=== PATIENT | female | born 1950 | race Caucasian/White ===

== ENCOUNTER 2018-10-15 12:52 | Outpatient (CLI) | payer OTHER, SELFPAY ==
[2018-10-15] VITALS (16 sets, daily range): BP systolic 129–213; BP diastolic 60–111; PULSE 68–93; RESP 16–20; TEMP 36.9; O2SAT 94–100
--- NOTE | 2018-10-15 13:00 | DI.RAD.S_ITS ---
PROCEDURE: PAIN L INTERLAMINAR/CAUDAL INJ INDICATIONS: SPINAL STENOSIS FINDINGS: Fluoroscopic spot filming was performed to verify placement of spinal needles. Appropriate location(s) of the needle tip(s) was confirmed by injection of iodinated contrast. IMPRESSION: Fluoroscopy for pain management. Dictated by: Mervat Campbell M.D. on 10/15/2018 at 14:15 Approved by: Mervat Campbell M.D. on 10/15/2018 at 14:16
--- NOTE | 2018-10-15 13:36 | P.PCN_ITS ---
Procedures Date/Time Date of procedure: 10/15/18 Time of procedure: 13:34 General Procedure description: POST OP DIAGNOSIS 1. HNP WITH RADICULAR FEATURES, 2. MULTILEVEL CENTRAL STENOSIS, PROCEDURES 1. FLUORSCOPICALLY GUIDED CONTRAST CONTROLLED INTERLAMINAR EPIDURAL STEROID INJECTION - T12/L1 PHYSICIAN: Aleksey Crane DO INDICATIONS is referred by for treatment of Bilateral Foraminal Stenosis L>R LE symptoms. FINDINGS Multilevel Central Spinal Stenosis with Nerve Root Compression DESCRIPTION OF PROCEDURE Fluoroscopically guided, contrast-controlled T12/L1 translaminar epidural steroid injection. Following denial of allergy and review of potential side effects and complications, including, but not necessarily limited to, infection, allergic reaction, local tissue breakdown, temporary as well as permanent nerve injury, paralysis, stroke and possible , the patient indicated that the patient understood and agreed to proceed. An informed consent document was signed by the patient, witnessed by a nurse, and placed in the patient's chart. Additionally, other treatment options including modalities, medications, and physical therapy were reviewed with the patient. After review of previous anaesthesic history and IV conscious sedation the patient was deemed safe to proceed with todays procedure with IV conscious sedation as ASA class II designation. Safety time-out was performed to confirm patient ID, procedure to be performed and site of procedure. IV sedation was accomplished with a combination of 3mg was administered by the RN after DO order , titrated to patient comfort during the course of the procedure while the patient remained responsive to all verbal commands In the prone position, following sterile prep and drape of the lumbar region, the T12/L1 translaminar space was identified fluoroscopically. The skin was anesthetized via a 25-gauge, 1.5-inch needle with 1% lidocaine solution. At this point, a 22-gauge short bevel spinal needle was atraumatically introduced and advanced under fluoroscopic guidance into the region of the T12/L1 translaminar space. Depth was confirmed on lateral view. Radiological data, including multiple fluoroscopic views of the lumbar spine, reveal a spinal needle at the T12/L1 translaminar space. Lateral views then show placement of the needle in the epidural space. Subsequent views show contrast material flowing superiorly and inferiorly in the epidural space. No vascular or intrathecal uptake is observed. At this point, using loss of resistance technique with saline and air, the epidural space was entered. This was confirmed following negative aspiration with injection of approximately 1.5 cc of Isovue 200, showing excellent epidural flow without vascular or intrathecal uptake. At this point, 1 cc of 1 % lidocaine solution combined with 3 cc or 20 mg of dexamethasone and 80mg Depo medrol was injected without incident. The patient tolerated the procedure well without signs or symptoms of complications prior to transfer to the recovery area continued monitoring without incident. The patient was then transferred to the recovery area where they were observed for an appropriate period of time after the injection. The patient reported a VAS score of 6 prior to the procedure and a post- procedure VAS of 0. Total Fluoroscopy Time: 11.8 seconds Total Conscious Sedation Time: 24min POST OP INSTRUCTIONS The patient was provided a Pain Log to continue to record their response to the target-specific procedure prior to follow-up visit with their referring physician. Additionally, specific post-injection care instructions and a contact number to our office were provided if concerns arise regarding possible complications associated with the procedure are suspected. Aleksey Crane, Complications: none
[2018-10-15] MEDS: MIDAZOLAM 5 MG/5 ML VIAL IV (13:44)
[2018-10-15] MEDS: BUPIVACAINE 0.25% (PF) VIAL 2 ML INJ (13:49)
[2018-10-15] MEDS: IOPAMIDOL 15 ML VIAL 3 ML INJ ×2 (13:49→15:56)
[2018-10-15] MEDS: DEXAMETHASONE 10 MG/ML VIAL 20 MG INJ (13:49)
[2018-10-15] MEDS: methylPREDNISolone acetate 80 MG/ML VIAL INJ (13:50)
--- NOTE | 2018-10-15 13:55 | PC.NURSE ---
assisting pt off table and transporting to post proc area in stable condition
--- NOTE | 2018-10-15 14:38 | PC.NURSE ---
pt returned from procedure awake and alert, able to move from w/c to chair with 2 person standby assist. reports her legs are numb. Resumed monitoring from Maritza CARLIN.
--- NOTE | 2018-10-15 14:41 | PC.NURSE ---
Having patient wait related her legs are still numb. Will recheck in a few minutes.
--- NOTE | 2018-10-15 14:49 | PC.NURSE ---
Double checked pt and she is still reporting her each leg is numb and her buttocks are still numb.
--- NOTE | 2018-10-15 15:34 | DI.RAD.S_ITS ---
PROCEDURE: PAIN INJECT BLOOD PATCH COMPARISON: None. INDICATIONS: spinal headache FINDINGS: Four intraoperative fluoroscopy images demonstrate needle placement in the lumbar spine. IMPRESSION: Fluoroscopy for pain management. Dictated by: Mervat Campbell M.D. on 10/15/2018 at 17:54 Approved by: Mervat Campbell M.D. on 10/15/2018 at 17:55
--- NOTE | 2018-10-15 15:44 | PM.PROC.1 ---
Procedures Date/Time Date of procedure: 10/15/18 Time of procedure: 15:44 General Procedure description: PROVIDER: Aleksey Crane DO Operative Note PREOP DIAGNOSIS 1. SPINAL HEADACHE POST OP DIAGNOSIS 1. SPINAL HEADACHE PROCEDURES 1. FLUORSCOPICALLY GUIDED CONTRAST CONTROLLED EPIDURAL BLOOD PATCH PHYSICIAN: Aleksey Crane DO INDICATIONS Sudha is referred by Dr. Burns for treatment of Spinal Headache s/p spinal procedure for LE pain. FINDINGS Spinal Headache Multilevel Central Spinal Stenosis with Nerve Root Compression DESCRIPTION OF PROCEDURE Fluoroscopically guided, contrast-controlled LEpidural Blood Patch Following denial of allergy and review of potential side effects and complications, including, but not necessarily limited to, infection, allergic reaction, local tissue breakdown, temporary as well as permanent nerve injury, paralysis, stroke and possible , the patient indicated that the patient understood and agreed to proceed. An informed consent document was signed by the patient, witnessed by a nurse, and placed in the patient's chart. Additionally, other treatment options including modalities, medications, and physical therapy were reviewed with the patient. After review of previous anaesthesic history and IV conscious sedation the patient was deemed safe to proceed with todays procedure with IV conscious sedation as ASA class II designation. Safety time-out was performed to confirm patient ID, procedure to be performed and site of procedure. IV sedation was accomplished with 50mcg of Fentanyl administered by the RN after DO order, titrated to patient comfort during the course of the procedure while the patient remained responsive to all verbal commands. In the prone position, following sterile prep and drape of the lumbar region, the L2/3 translaminar space was identified fluoroscopically. The skin was anesthetized via a 25-gauge, 1.5-inch needle with 1% lidocaine solution. At this point, a 22-gauge short bevel spinal needle was atraumatically introduced and advanced under fluoroscopic guidance into the region of the L2/3 translaminar space. Depth was confirmed on lateral view. Radiological data, including multiple fluoroscopic views of the lumbar spine, reveal a spinal needle at the L2/3 translaminar space. Lateral views then show placement of the needle in the epidural space. Subsequent views show contrast material flowing superiorly and inferiorly in the epidural space. No vascular or intrathecal uptake is observed. At this point, using loss of resistance technique with saline and air, the epidural space was entered. This was confirmed following negative aspiration with injection of approximately 0.5cc of Isovue 200, showing excellent epidural flow without vascular or intrathecal uptake. At this point, 20cc of the patients blood was obtained from the IV site. This was then slowly injected into the epidural space while monitoring the patients neurological state. The patent tolerated the procedure without signs of symptoms of complications prior to transfer to the recovery area on a bed lying supine flat for further monitoring. The patient was then transferred to the recovery area where they were observed for an appropriate period of time after the injection. The patient reported a VAS score of 8 prior to the procedure and a post-procedure VAS of 1. Total Fluoroscopy Time: 11.8 seconds Total Conscious Sedation Time: 24min POST OP INSTRUCTIONS The patient was provided a Pain Log to continue to record their response to the target-specific procedure prior to follow-up visit with their referring physician. Additionally, specific post-injection care instructions and a contact number to our office were provided if concerns arise regarding possible complications associated with the procedure are suspected. Aleksey Crane, Complications: none
[2018-10-15] MEDS: fentaNYL 100 MCG/2 ML INJ IV (15:54)
--- NOTE | 2018-10-15 16:04 | PC.NURSE ---
2nd proc sedation done for blood patch rt acute headache after scheduled procedure. pt not being assisted off table and transporting to post proc area in stable condition
--- NOTE | 2018-10-15 16:55 | PC.NURSE ---
pt returned from Blood patch at 1611, pt awake and alert. Pt stable. Resumed monitoring from Maritza CARLIN.
--- NOTE | 2018-10-15 16:58 | PC.NURSE ---
Headache pain 0/10, sat pt up and gave her some water and cookies. Pt tolerating position change.
--- NOTE | 2018-10-16 16:27 | PC.NURSE ---
Follow up injection call made and pt reports I can't believe I don't hurt Even though she didn't sleep well last night she denied having any headache pain, She did take her gabapentin and tylenol last night and then put some heat on her back and the pain went away.
== END 2018-10-15 16:53 ==
LOC: RAD 12:57
PROVIDERS: PCP Family Medicine; Visit Provider Physical Medicine & Rehabilitation
DX: G97.1 Other reaction to spinal and lumbar puncture (principal); M48.061 Spinal stenosis, lumbar region without neurogenic claudication; M54.16 Radiculopathy, lumbar region; M96.1 Postlaminectomy syndrome, not elsewhere classified; S23.171A Dislocation of T12/L1 thoracic vertebra, initial encounter
CPT/HCPCS: 62273; 62323; 77003; 99152; J1040; J1100; J2250; J3010

== ENCOUNTER 2018-11-26 10:04 | Outpatient (CLI) | payer OTHER, SELFPAY ==
[2018-11-26] VITALS (8 sets, daily range): BP systolic 124–171; BP diastolic 66–80; PULSE 62–67; RESP 16–18; TEMP 36.2; O2SAT 95–99
--- NOTE | 2018-11-26 10:05 | DI.RAD.S_ITS ---
PROCEDURE: PAIN L INTERLAMINAR/CAUDAL INJ INDICATIONS: SPINAL STENOSIS FINDINGS: Fluoroscopic spot filming was performed to verify placement of spinal needles at the L5-S1 level(s), as labeled on the films. Appropriate location(s) of the needle tip(s) was confirmed by injection of iodinated contrast. IMPRESSION: Fluoroscopy for pain management. Dictated by: Mervat Campbell M.D. on 11/26/2018 at 12:13 Approved by: Mervat Campbell M.D. on 11/26/2018 at 12:13
[2018-11-26] MEDS: MIDAZOLAM 5 MG/5 ML VIAL IV (11:25)
--- NOTE | 2018-11-26 11:34 | PC.NURSE ---
ASSISTING PT OFF TABLE AND TRANSPORTING TO POST PROC AREA IN STABLE CONDITION
--- NOTE | 2018-11-26 11:42 | P.PCN_ITS ---
Procedures Date/Time Date of procedure: 11/26/18 Time of procedure: 11:41 General Procedure description: PROVIDER: Aleksey Crane DO Operative Note PREOP DIAGNOSIS 1. HNP WITH RADICULAR FEATURES, 2. MULTILEVEL CENTRAL STENOSIS, POST OP DIAGNOSIS 1. HNP WITH RADICULAR FEATURES, 2. MULTILEVEL CENTRAL STENOSIS, PROCEDURES 1. FLUORSCOPICALLY GUIDED CONTRAST CONTROLLED INTERLAMINAR EPIDURAL STEROID INJECTION - L5/S1 PHYSICIAN: Aleksey Crane DO INDICATIONS Sudha is referred by Dr. Burns for treatment of Bilateral Foraminal Stenosis L>R LE symptoms. FINDINGS Multilevel Central Spinal Stenosis with Nerve Root Compression DESCRIPTION OF PROCEDURE Fluoroscopically guided, contrast-controlled L5/S1 translaminar epidural steroid injection. Following denial of allergy and review of potential side effects and complications, including, but not necessarily limited to, infection, allergic reaction, local tissue breakdown, temporary as well as permanent nerve injury, paralysis, stroke and possible , the patient indicated that the patient understood and agreed to proceed. An informed consent document was signed by the patient, witnessed by a nurse, and placed in the patient's chart. Additionally, other treatment options including modalities, medications, and physical therapy were reviewed with the patient. After review of previous anaesthesic history and IV conscious sedation the patient was deemed safe to proceed with todays procedure with IV conscious sedation as ASA class II designation. Safety time-out was performed to confirm patient ID, procedure to be performed and site of procedure. IV sedation was accomplished with a combination of 3mg of Versed administered by the RN after DO order, titrated to patient comfort during the course of the procedure while the patient remained responsive to all verbal commands. In the prone position, following sterile prep and drape of the lumbar region, the L5/S1 translaminar space was identified fluoroscopically. The skin was anesthetized via a 25-gauge, 1.5-inch needle with 1% lidocaine solution. At this point, a 22-gauge short bevel spinal needle was atraumatically introduced and advanced under fluoroscopic guidance into the region of the L5/S1 t ranslaminar space. Depth was confirmed on lateral view. Radiological data, including multiple fluoroscopic views of the lumbar spine, reveal a spinal needle at the L5/S1 translaminar space. Lateral views then show placement of the needle in the epidural space. Subsequent views show contrast material flowing superiorly and inferiorly in the epidural space. No vascular or intrathecal uptake is observed. At this point, using loss of resistance technique with saline and air, the epidural space was entered. This was confirmed following negative aspiration with injection of approximately 1.5 cc of Isovue 200, showing excellent epidural flow without vascular or intrathecal uptake. At this point, 1 cc of 1% lidocaine solution combined with 2cc or 20mg of dexamethasone was injected with out incident. The patent tolerated the procedure without signs of symptoms of complications prior to transfer to the recovery area for further monitoring. The patient was then transferred to the recovery area where they were observed for an appropriate period of time after the injection. The patient reported a VAS score of 6 prior to the procedure and a post-procedure VAS of 0. Total Fluoroscopy Time: 11.8 seconds Total Conscious Sedation Time: 24min POST OP INSTRUCTIONS The patient was provided a Pain Log to continue to record their response to the target-specific procedure prior to follow-up visit with their referring physician. Additionally, specific post-injection care instructions and a contact number to our office were provided if concerns arise regarding possible complications associated with the procedure are suspected. Aleksey Crane DO Complications: none
--- NOTE | 2018-11-26 12:07 | PC.NURSE ---
pt returned from procedure at 1140 via wheelchair, a little drowsy but easily awakens, able to move from w/c to chair with standby assist. Resumed monitoring from Maritza CARLIN.
--- NOTE | 2018-11-27 13:31 | PC.NURSE ---
Follow up call post procedure translaminar epidural steroid injection and left message as pt did not answer the phone.
== END 2018-11-26 12:36 ==
LOC: RAD 10:04
PROVIDERS: PCP Family Medicine; Visit Provider Physical Medicine & Rehabilitation
DX: M51.17 Intervertebral disc disorders with radiculopathy, lumbosacral region (principal); M51.16 Intervertebral disc disorders with radiculopathy, lumbar region; M48.061 Spinal stenosis, lumbar region without neurogenic claudication; M47.27 Other spondylosis with radiculopathy, lumbosacral region; M43.17 Spondylolisthesis, lumbosacral region; M96.1 Postlaminectomy syndrome, not elsewhere classified; Z95.5 Presence of coronary angioplasty implant and graft
CPT/HCPCS: 62323; 99152; J1100; J2250

== ENCOUNTER 2018-11-26 20:13 | Emergency (ER) | payer OTHER, SELFPAY ==
[2018-11-26 20:22] VITALS: BP 205/86; PULSE 94; RESP 22; TEMP 36.4; O2SAT 96; BMI 23.7
--- NOTE | 2018-11-26 20:28 | ED.HA ---
HPI - Headache <ZOYA Bird - Last Filed: 11/26/18 21:57> General Chief Complaint: Headache Stated Complaint: HEADACHE AFTER PROCEDURE Time Seen by Provider: 11/26/18 20:27 Source: patient Mode of arrival: ambulatory Limitations: no limitations History of Present Illness HPI Narrative: 68-year-old female history of chronic lower back pain and is a nonsmoker here for complaint of headache. She was seen by Dr. Crane today at the pain management clinic where a lumbar epidural steroid injection was completed today. This was to the lower lumbar area. She is afraid that she has a spinal headache. She has had this in the past after these procedures. She denies any nausea vomiting. No fevers and no chills. No trauma to the head. Positive p.o. and take. She reports that last time she had to have a blood patch to reduce her headache. She denies any stressors relievers of her symptoms. she is ambulatory into the emergency room. No neuro deficits Related Data Home Medications Medication Instructions Recorded Confirmed aspirin 325 mg tablet 325 mg PO DAILY 08/29/18 11/14/18 benzonatate 200 mg capsule 200 mg PO TID PRN 08/29/18 11/14/18 calcium carbonate 500 mg calcium 500 mg PO Q4-6H PRN cap 08/29/18 11/14/18 (1,250 mg) capsule carvedilol 6.25 mg tablet See Rx Instructions PO BID 08/29/18 11/14/18 duloxetine 60 mg capsule,delayed 60 mg PO DAILY 08/29/18 11/14/18 release ferrous fumarate 325 mg (106 mg PO DAILY tab 08/29/18 11/14/18 iron) tablet glipizide 10 mg tablet 10 mg PO BID 08/29/18 11/14/18 metformin 1,000 mg tablet 1,000 mg PO BID 08/29/18 11/14/18 paroxetine 10 mg tablet 10 mg PO DAILY 08/29/18 11/14/18 ropinirole 3 mg tablet 3 mg PO BEDTIME 08/29/18 11/14/18 gabapentin 300 mg capsule 600 mg PO TID cap 10/23/18 11/14/18 Previous Rx's Medication Instructions Recorded tramadol 50 mg tablet 50 mg PO TID PRN #60 tab 10/23/18 celecoxib 200 mg capsule 200 mg PO DAILY #30 cap 11/14/18 Allergies Allergy/AdvReac Type Severity Reaction Status Date / Time ciprofloxacin Allergy Intermediate hives Verified 11/26/18 10:59 levofloxacin Allergy Intermediate nausea - Verified 11/26/18 10:59 vomitting lisinopril AdvReac Intermediate low BP, Verified 11/26/18 10:59 dizziness ketorolac AdvReac Mild itching Verified 11/26/18 10:59 zolpidem AdvReac Mild sleep Verified 11/26/18 10:59 walking daptomycin AdvReac Unknown unkknown Verified 11/26/18 10:59 Review of Systems <ZOYA Bird - Last Filed: 11/26/18 21:57> Constitutional Denies chills, Denies fatigue, Denies fever(s), Denies lethargy and Denies weakness Eyes Denies change in vision, Denies eye discharge, Denies irritation and Denies loss of vision ENT Ears, Nose, Mouth, and Throat: Denies change in voice, Denies neck pain, Denies sore throat and Denies throat swelling Respiratory Denies wheezing Genitourinary Denies hematuria, Denies flank pain, Denies urinary incontinence and Denies urinary urgency Musculoskeletal Denies neck pain Neurologic Denies confusion, Denies loss of vision and Denies weakness Comments: Headache Psychiatric Denies anxiety, Denies confusion, Denies depression, Denies homicidal ideation and Denies suicidal ideation Endocrine Denies fatigue and Denies flushing Hematologic/Lymphatic Denies easy bruising Allergic/Immunologic Denies urticaria, Denies throat swelling and Denies wheezing PFSH <ZOYA Bird - Last Filed: 11/26/18 21:57> Social History Smoking Status: Never smoker Exam <ZOYA Bird - Last Filed: 11/26/18 21:57> Initial Vital Signs Initial Vital Signs: Vital Signs Temperature 97.6 F 11/26/18 20:22 Pulse Rate 94 H 11/26/18 20:22 Respiratory Rate 22 11/26/18 20:22 Blood Pressure 205/86 H 11/26/18 20:22 Pulse Oximetry 96 11/26/18 20:22 Const General: cooperative and well developed Nutritional Appearance: well nourished Orientation: alert, awake, oriented x3 and not confused HENHI Mouth: oral mucosae normal and moist mucous membranes Eyes Conjunctivae: conjunctivae normal Sclera: sclerae normal Pupils: PERRL EOM: EOM intact bilaterally Cardio Rate: regular rate Rhythm: regular rhythm Heart Sounds: no click, no gallops, no murmurs and no rubs Pulses: normal peripheral pulses Back/Spine/Pelvis Other: small puncture wound to midline lumbar area and no swelling no erythema. No drainage. Distal sensation is intact. Distal range of motion is intact for distal pulses are intact Skin General: no rashes or lesions noted, No jaundice and No petechiae Neuro General: alert, oriented x3, gait normal and no focal motor deficits Speech: speech normal <Aleksey Cooper MD - Last Filed: 11/27/18 02:47> Initial Vital Signs Initial Vital Signs: Vital Signs Temperature 97.6 F 11/26/18 20:22 Pulse Rate 94 H 11/26/18 20:22 Respiratory Rate 22 11/26/18 20:22 Blood Pressure 205/86 H 11/26/18 20:22 Pulse Oximetry 96 11/26/18 20:22 Course <ZOYA Bird - Last Filed: 11/26/18 21:57> Orders Ordered: ED Orders 11/26/18 20:36 CT head/brain wo con Stat Discontinued Medications Acetaminophen (Tylenol) 975 mg PO NOW ONE Stop: 11/26/18 20:35 Last Admin: 11/26/18 20:40 Dose: 975 mg Hydrocodone Bitart/Acetaminophen (Vicodin Prepack) 1 bottle MISC SEEINSTR ONE Stop: 11/26/18 21:44 Last Admin: 11/26/18 21:44 Dose: 1 bottle Diphenhydramine HCl (Benadryl) 25 mg IV NOW ONE Stop: 11/26/18 20:35 Last Admin: 11/26/18 20:40 Dose: 25 mg Sodium Chloride (Normal Saline 0.9%) 1,000 mls @ 1,000 mls/hr IV BOLUS ONE Stop: 11/26/18 21:33 Last Infusion: 11/26/18 21:41 Dose: 1,000 mls/hr Admin: 11/26/18 20:40 Dose: 1,000 mls/hr Morphine Sulfate (Morphine) 2 mg IV NOW ONE Stop: 11/26/18 20:35 Last Admin: 11/26/18 20:40 Dose: 2 mg Vital Signs - 8 hr 11/26/18 20:22 11/26/18 21:15 Temperature 97.6 F Pulse Rate 94 H 78 Respiratory Rate 22 14 Blood Pressure 205/86 H Blood Pressure [Left Arm] 114/68 Pulse Oximetry 96 92 <Aleksey Cooper MD - Last Filed: 11/27/18 02:47> Orders Ordered: ED Orders 11/26/18 20:36 CT head/brain wo con Stat Discontinued Medications Acetaminophen (Tylenol) 975 mg PO NOW ONE Stop: 11/26/18 20:35 Last Admin: 11/26/18 20:40 Dose: 975 mg Hydrocodone Bitart/Acetaminophen (Vicodin Prepack) 1 bottle MISC SEEINSTR ONE Stop: 11/26/18 21:44 Last Admin: 11/26/18 21:44 Dose: 1 bottle Diphenhydramine HCl (Benadryl) 25 mg IV NOW ONE Stop: 11/26/18 20:35 Last Admin: 11/26/18 20:40 Dose: 25 mg Sodium Chloride (Normal Saline 0.9%) 1,000 mls @ 1,000 mls/hr IV BOLUS ONE Stop: 11/26/18 21:33 Last Infusion: 11/26/18 21:41 Dose: 1,000 mls/hr Admin: 11/26/18 20:40 Dose: 1,000 mls/hr Morphine Sulfate (Morphine) 2 mg IV NOW ONE Stop: 11/26/18 20:35 Last Admin: 11/26/18 20:40 Dose: 2 mg Vital Signs - 8 hr 11/26/18 20:22 11/26/18 21:15 Temperature 97.6 F Pulse Rate 94 H 78 Respiratory Rate 22 14 Blood Pressure 205/86 H Blood Pressure [Left Arm] 114/68 Pulse Oximetry 96 92 MDM - Headache <ZOYA Bird - Last Filed: 11/26/18 21:57> Imaging Data CT scan - head: Radiologist's impression: [address] [address] [address] Scan Report Signed Patient: Sudha Sanchez LMR#: [id number] : 1950Acct:[id number] Age/Sex: 68 / FDate of Service: 11/26/18 Loc: ED Accession Number: [id number] Procedure: CT head/brain wo con Ordering Provider: Óscar Tijerina PROCEDURE: CT HEAD/BRAIN WO CON INDICATIONS: headache elevated blood pressure TECHNIQUE: Noncontrast 4.5 mm thick angled axial sections acquired from the foramen magnum to the vertex, with coronal and sagittal reformats. For radiation dose reduction, the following was used: automated exposure control, adjustment of mA and/or kV according to patient size. COMPARISON: None. FINDINGS: Image quality: Excellent. CSF spaces: Basal cisterns are patent. No extra-axial fluid collections. Ventricles are normal in size and shape. Brain: No midline shift. No intracranial masses or hemorrhage. Steiner-white matter interface is normal. No acute stroke. Age-related volume loss. Bilateral vertebral artery calcifications are identified. Skull and face: Calvarium and visualized facial bones are intact, without suspicious lesions. Sinuses: Visualized sinuses and mastoids are clear. IMPRESSION: 1. No evidence of acute stroke, hemorrhage, or mass. 2. Atherosclerotic calcifications involving the distal vertebral arteries. Dictated by: Jorge Muir M.D. on 11/26/2018 at 21:19 Approved by: Jorge Muir M.D. on 11/26/2018 at 21:21 [facility] Narrative Medical decision making narrative: patient had elevated blood pressure on arrival most likely secondary to headache. CT scan of the head was obtained was negative for any acute findings. She was treated with fluids morphine, Tylenol and Benadryl which reduced her headache although did not fully resolve her headache. her blood pressure there after normalized. Discussed case with anesthesiology who does not believe that blood patches needed at this timeframe. She is released home with a few [place] to help with any headache. She is encouraged to follow up with pain management clinic tomorrow for further re-evaluation. Plenty of fluids and rest. For any worsening symptoms return to the emergency room. Discharge Plan Departure Patient Disposition: Home Clinical Impression: Headache Qualifiers: Headache type: unspecified Headache chronicity pattern: acute headache Intractability: not intractable Qualified Code(s): R51 - Headache Discharge Date/Time: 11/26/18 21:46 Interventions: ED Discharge Assessment Last Done: 11/26/18 21:46 Activity Restrictions/Additional Instructions: Follow up with Dr. Crane tomorrow for re-evaluation. Use Tylenol for headache. Plenty of fluids and rest. Small amount of [place] is provided for breakthrough pain not covered by the Tylenol. For any worsening symptoms return to the emergency room. CT of the head was obtained today was negative for any acute findings. Try lying on your back to see if it helps with her symptoms. Prescriptions: No Action tramadol 50 mg tablet 50 mg PO TID PRN (Reason: pain) Qty: 60 RF: 1 gabapentin 300 mg capsule 600 mg PO TID RF: 0 carvedilol 6.25 mg tablet See Patient Comments PO BID RF: 0 paroxetine HCl 10 mg tablet 10 mg PO DAILY RF: 0 aspirin 325 mg tablet 325 mg PO DAILY RF: 0 benzonatate 200 mg capsule 200 mg PO TID PRNRF: 0 glipizide 10 mg tablet 10 mg PO BID RF: 0 ropinirole 3 mg tablet 3 mg PO BEDTIME RF: 0 metformin 1,000 mg tablet 1,000 mg PO BID RF: 0 duloxetine 60 mg capsule,delayed release(DR/EC) 60 mg PO DAILY RF: 0 ferrous fumarate 325 mg (106 mg iron) tablet PO DAILY RF: 0 calcium carbonate 500 mg calcium (1,250 mg) capsule 500 mg PO Q4-6H PRNRF: 0 celecoxib [Celebrex] 200 mg capsule 200 mg PO DAILY Qty: 30 RF: 2 Referrals: Ruben Burns MD [Primary Care Provider] - <Aleksey Cooper MD - Last Filed: 11/27/18 02:47> [facility]: I was present in the ER at the time this patient's care. I was available for verbal consultation or to see the patient directly if requested. I agree with the assessment and management plan.
--- NOTE | 2018-11-26 20:36 | DI.CT.S_ITS ---
PROCEDURE: CT HEAD/BRAIN WO CON INDICATIONS: headache elevated blood pressure TECHNIQUE: Noncontrast 4.5 mm thick angled axial sections acquired from the foramen magnum to the vertex, with coronal and sagittal reformats. For radiation dose reduction, the following was used: automated exposure control, adjustment of mA and/or kV according to patient size. COMPARISON: None. FINDINGS: Image quality: Excellent. CSF spaces: Basal cisterns are patent. No extra-axial fluid collections. Ventricles are normal in size and shape. Brain: No midline shift. No intracranial masses or hemorrhage. Steiner-white matter interface is normal. No acute stroke. Age-related volume loss. Bilateral vertebral artery calcifications are identified. Skull and face: Calvarium and visualized facial bones are intact, without suspicious lesions. Sinuses: Visualized sinuses and mastoids are clear. IMPRESSION: 1. No evidence of acute stroke, hemorrhage, or mass. 2. Atherosclerotic calcifications involving the distal vertebral arteries. Dictated by: Jorge Muir M.D. on 11/26/2018 at 21:19 Approved by: Jorge Muir M.D. on 11/26/2018 at 21:21
[2018-11-26] MEDS: diphenhydrAMINE 50 MG/ML VIAL 25 MG IV (20:40)
[2018-11-26] MEDS: SODIUM CHLORIDE 0.9% 1,000 ML 1000 ML IV (20:40)
[2018-11-26] MEDS: MORPHINE 2 MG/ML INJ IV (20:40)
[2018-11-26] MEDS: ACETAMINOPHEN 325 MG TABLET 975 MG PO (20:40)
[2018-11-26 21:15] VITALS: BP 114/68; PULSE 78; RESP 14; O2SAT 92
--- NOTE | 2018-11-26 21:43 | ED_ITS ---
HPI - Headache <ZOYA Bird - Last Filed: 11/26/18 21:57> General Chief Complaint: Headache Stated Complaint: HEADACHE AFTER PROCEDURE Time Seen by Provider: 11/26/18 20:27 Source: patient Mode of arrival: ambulatory Limitations: no limitations History of Present Illness HPI Narrative: 68-year-old female history of chronic lower back pain and is a nonsmoker here for complaint of headache. She was seen by Dr. Crane today at the pain management clinic where a lumbar epidural steroid injection was completed today. This was to the lower lumbar area. She is afraid that she has a spinal headache. She has had this in the past after these procedures. She denies any nausea vomiting. No fevers and no chills. No trauma to the head. Positive p.o. and take. She reports that last time she had to have a blood patch to reduce her headache. She denies any stressors relievers of her symptoms. she is ambulatory into the emergency room. No neuro deficits Related Data Home Medications Medication Instructions Recorded Confirmed aspirin 325 mg tablet 325 mg PO DAILY 08/29/18 11/14/18 benzonatate 200 mg capsule 200 mg PO TID PRN 08/29/18 11/14/18 calcium carbonate 500 mg calcium 500 mg PO Q4-6H PRN cap 08/29/18 11/14/18 (1,250 mg) capsule carvedilol 6.25 mg tablet See Rx Instructions PO BID 08/29/18 11/14/18 duloxetine 60 mg capsule,delayed 60 mg PO DAILY 08/29/18 11/14/18 release ferrous fumarate 325 mg (106 mg PO DAILY tab 08/29/18 11/14/18 iron) tablet glipizide 10 mg tablet 10 mg PO BID 08/29/18 11/14/18 metformin 1,000 mg tablet 1,000 mg PO BID 08/29/18 11/14/18 paroxetine 10 mg tablet 10 mg PO DAILY 08/29/18 11/14/18 ropinirole 3 mg tablet 3 mg PO BEDTIME 08/29/18 11/14/18 gabapentin 300 mg capsule 600 mg PO TID cap 10/23/18 11/14/18 Previous Rx's Medication Instructions Recorded tramadol 50 mg tablet 50 mg PO TID PRN #60 tab 10/23/18 celecoxib 200 mg capsule 200 mg PO DAILY #30 cap 11/14/18 Allergies Allergy/AdvReac Type Severity Reaction Status Date / Time ciprofloxacin Allergy Intermediate hives Verified 11/26/18 10:59 levofloxacin Allergy Intermediate nausea - Verified 11/26/18 10:59 vomitting lisinopril AdvReac Intermediate low BP, Verified 11/26/18 10:59 dizziness ketorolac AdvReac Mild itching Verified 11/26/18 10:59 zolpidem AdvReac Mild sleep Verified 11/26/18 10:59 walking daptomycin AdvReac Unknown unkknown Verified 11/26/18 10:59 Review of Systems <ZOYA Bird - Last Filed: 11/26/18 21:57> Constitutional Denies chills, Denies fatigue, Denies fever(s), Denies lethargy and Denies weakness Eyes Denies change in vision, Denies eye discharge, Denies irritation and Denies loss of vision ENT Ears, Nose, Mouth, and Throat: Denies change in voice, Denies neck pain, Denies sore throat and Denies throat swelling Respiratory Denies wheezing Genitourinary Denies hematuria, Denies flank pain, Denies urinary incontinence and Denies urinary urgency Musculoskeletal Denies neck pain Neurologic Denies confusion, Denies loss of vision and Denies weakness Comments: Headache Psychiatric Denies anxiety, Denies confusion, Denies depression, Denies homicidal ideation and Denies suicidal ideation Endocrine Denies fatigue and Denies flushing Hematologic/Lymphatic Denies easy bruising Allergic/Immunologic Denies urticaria, Denies throat swelling and Denies wheezing PFSH <ZOYA Bird - Last Filed: 11/26/18 21:57> Social History Smoking Status: Never smoker Exam <ZOYA Bird - Last Filed: 11/26/18 21:57> Initial Vital Signs Initial Vital Signs: Vital Signs Temperature 97.6 F 11/26/18 20:22 Pulse Rate 94 H 11/26/18 20:22 Respiratory Rate 22 11/26/18 20:22 Blood Pressure 205/86 H 11/26/18 20:22 Pulse Oximetry 96 11/26/18 20:22 Const General: cooperative and well developed Nutritional Appearance: well nourished Orientation: alert, awake, oriented x3 and not confused HENLA Mouth: oral mucosae normal and moist mucous membranes Eyes Conjunctivae: conjunctivae normal Sclera: sclerae normal Pupils: PERRL EOM: EOM intact bilaterally Cardio Rate: regular rate Rhythm: regular rhythm Heart Sounds: no click, no gallops, no murmurs and no rubs Pulses: normal peripheral pulses Back/Spine/Pelvis Other: small puncture wound to midline lumbar area and no swelling no erythema. No drainage. Distal sensation is intact. Distal range of motion is intact for distal pulses are intact Skin General: no rashes or lesions noted, No jaundice and No petechiae Neuro General: alert, oriented x3, gait normal and no focal motor deficits Speech: speech normal <Aleksey Cooper MD - Last Filed: 11/27/18 02:47> Initial Vital Signs Initial Vital Signs: Vital Signs Temperature 97.6 F 11/26/18 20:22 Pulse Rate 94 H 11/26/18 20:22 Respiratory Rate 22 11/26/18 20:22 Blood Pressure 205/86 H 11/26/18 20:22 Pulse Oximetry 96 11/26/18 20:22 Course <ZOYA Bird - Last Filed: 11/26/18 21:57> Orders Ordered: ED Orders 11/26/18 20:36 CT head/brain wo con Stat Discontinued Medications Acetaminophen (Tylenol) 975 mg PO NOW ONE Stop: 11/26/18 20:35 Last Admin: 11/26/18 20:40 Dose: 975 mg Hydrocodone Bitart/Acetaminophen (Vicodin Prepack) 1 bottle MISC SEEINSTR ONE Stop: 11/26/18 21:44 Last Admin: 11/26/18 21:44 Dose: 1 bottle Diphenhydramine HCl (Benadryl) 25 mg IV NOW ONE Stop: 11/26/18 20:35 Last Admin: 11/26/18 20:40 Dose: 25 mg Sodium Chloride (Normal Saline 0.9%) 1,000 mls @ 1,000 mls/hr IV BOLUS ONE Stop: 11/26/18 21:33 Last Infusion: 11/26/18 21:41 Dose: 1,000 mls/hr Admin: 11/26/18 20:40 Dose: 1,000 mls/hr Morphine Sulfate (Morphine) 2 mg IV NOW ONE Stop: 11/26/18 20:35 Last Admin: 11/26/18 20:40 Dose: 2 mg Vital Signs - 8 hr 11/26/18 20:22 11/26/18 21:15 Temperature 97.6 F Pulse Rate 94 H 78 Respiratory Rate 22 14 Blood Pressure 205/86 H Blood Pressure [Left Arm] 114/68 Pulse Oximetry 96 92 <Aleksey Cooper MD - Last Filed: 11/27/18 02:47> Orders Ordered: ED Orders 11/26/18 20:36 CT head/brain wo con Stat Discontinued Medications Acetaminophen (Tylenol) 975 mg PO NOW ONE Stop: 11/26/18 20:35 Last Admin: 11/26/18 20:40 Dose: 975 mg Hydrocodone Bitart/Acetaminophen (Vicodin Prepack) 1 bottle MISC SEEINSTR ONE Stop: 11/26/18 21:44 Last Admin: 11/26/18 21:44 Dose: 1 bottle Diphenhydramine HCl (Benadryl) 25 mg IV NOW ONE Stop: 11/26/18 20:35 Last Admin: 11/26/18 20:40 Dose: 25 mg Sodium Chloride (Normal Saline 0.9%) 1,000 mls @ 1,000 mls/hr IV BOLUS ONE Stop: 11/26/18 21:33 Last Infusion: 11/26/18 21:41 Dose: 1,000 mls/hr Admin: 11/26/18 20:40 Dose: 1,000 mls/hr Morphine Sulfate (Morphine) 2 mg IV NOW ONE Stop: 11/26/18 20:35 Last Admin: 11/26/18 20:40 Dose: 2 mg Vital Signs - 8 hr 11/26/18 20:22 11/26/18 21:15 Temperature 97.6 F Pulse Rate 94 H 78 Respiratory Rate 22 14 Blood Pressure 205/86 H Blood Pressure [Left Arm] 114/68 Pulse Oximetry 96 92 MDM - Headache <ZOYA Bird - Last Filed: 11/26/18 21:57> Imaging Data CT scan - head: Radiologist's impression: [address] [address] [address] Scan Report Signed Patient: Sudha Sanchez LMR#: [id number] : 1950Acct:[id number] Age/Sex: 68 / FDate of Service: 11/26/18 Loc: ED Accession Number: [id number] Procedure: CT head/brain wo con Ordering Provider: Óscar Tijerina PROCEDURE: CT HEAD/BRAIN WO CON INDICATIONS: headache elevated blood pressure TECHNIQUE: Noncontrast 4.5 mm thick angled axial sections acquired from the foramen magnum to the vertex, with coronal and sagittal reformats. For radiation dose reduction, the following was used: automated exposure control, adjustment of mA and/or kV according to patient size. COMPARISON: None. FINDINGS: Image quality: Excellent. CSF spaces: Basal cisterns are patent. No extra-axial fluid collections. Ventricles are normal in size and shape. Brain: No midline shift. No intracranial masses or hemorrhage. Steiner-white matter interface is normal. No acute stroke. Age-related volume loss. Bilateral vertebral artery calcifications are identified. Skull and face: Calvarium and visualized facial bones are intact, without suspicious lesions. Sinuses: Visualized sinuses and mastoids are clear. IMPRESSION: 1. No evidence of acute stroke, hemorrhage, or mass. 2. Atherosclerotic calcifications involving the distal vertebral arteries. Dictated by: Jorge Muir M.D. on 11/26/2018 at 21:19 Approved by: Jorge Muir M.D. on 11/26/2018 at 21:21 [facility] Narrative Medical decision making narrative: patient had elevated blood pressure on arrival most likely secondary to headache. CT scan of the head was obtained was negative for any acute findings. She was treated with fluids morphine, Tylenol and Benadryl which reduced her headache although did not fully resolve her headache. her blood pressure there after normalized. Discussed case with anesthesiology who does not believe that blood patches needed at this timeframe. She is released home with a few [place] to help with any headache. She is encouraged to follow up with pain management clinic tomorrow for further re-evaluation. Plenty of fluids and rest. For any worsening symptoms return to the emergency room. Discharge Plan Departure Patient Disposition: Home Clinical Impression: Headache Qualifiers: Headache type: unspecified Headache chronicity pattern: acute headache Intractability: not intractable Qualified Code(s): R51 - Headache Discharge Date/Time: 11/26/18 21:46 Interventions: ED Discharge Assessment Last Done: 11/26/18 21:46 Activity Restrictions/Additional Instructions: Follow up with Dr. Crane tomorrow for re-evaluation. Use Tylenol for headache. Plenty of fluids and rest. Small amount of [place] is provided for breakthrough pain not covered by the Tylenol. For any worsening symptoms return to the emergency room. CT of the head was obtained today was negative for any acute findings. Try lying on your back to see if it helps with her symptoms. Prescriptions: No Action tramadol 50 mg tablet 50 mg PO TID PRN (Reason: pain) Qty: 60 RF: 1 gabapentin 300 mg capsule 600 mg PO TID RF: 0 carvedilol 6.25 mg tablet See Patient Comments PO BID RF: 0 paroxetine HCl 10 mg tablet 10 mg PO DAILY RF: 0 aspirin 325 mg tablet 325 mg PO DAILY RF: 0 benzonatate 200 mg capsule 200 mg PO TID PRNRF: 0 glipizide 10 mg tablet 10 mg PO BID RF: 0 ropinirole 3 mg tablet 3 mg PO BEDTIME RF: 0 metformin 1,000 mg tablet 1,000 mg PO BID RF: 0 duloxetine 60 mg capsule,delayed release(DR/EC) 60 mg PO DAILY RF: 0 ferrous fumarate 325 mg (106 mg iron) tablet PO DAILY RF: 0 calcium carbonate 500 mg calcium (1,250 mg) capsule 500 mg PO Q4-6H PRNRF: 0 celecoxib [Celebrex] 200 mg capsule 200 mg PO DAILY Qty: 30 RF: 2 Referrals: Ruben Burns MD [Primary Care Provider] - <Aleksey Cooper MD - Last Filed: 11/27/18 02:47> [facility] I was present in the ER at the time this patient's care. I was available for verbal consultation or to see the patient directly if requested. I agree with the assessment and management plan.
[2018-11-26] MEDS: HYDROCODONE/ACET 5/325 PREPACK 1 BOTTLE MISC (21:44)
== END 2018-11-26 21:46 | disposition home or self-care (01) ==
PROVIDERS: Emergency Provider Nurse Practitioner Family; PCP Family Medicine
DX: R51 Headache (principal); M51.17 Intervertebral disc disorders with radiculopathy, lumbosacral region; M51.16 Intervertebral disc disorders with radiculopathy, lumbar region; M48.061 Spinal stenosis, lumbar region without neurogenic claudication; M47.27 Other spondylosis with radiculopathy, lumbosacral region; M43.17 Spondylolisthesis, lumbosacral region; M96.1 Postlaminectomy syndrome, not elsewhere classified
CPT/HCPCS: 36591; 62323; 70450; 96361; 96365; 96375; 99152; 99283; 99285; J1100; J1200; J2250; J2270

== ENCOUNTER 2019-01-28 12:51 | Outpatient (CLI) | payer OTHER, SELFPAY ==
[2019-01-28] VITALS (7 sets, daily range): BP systolic 141–168; BP diastolic 68–76; PULSE 81–91; RESP 16–18; TEMP 36.4; O2SAT 95–99
--- NOTE | 2019-01-28 12:52 | DI.RAD.S_ITS ---
PROCEDURE: PAIN L/SI FACET INJ/BLK 1STL INDICATIONS: SPONDYLOSIS FINDINGS: Fluoroscopic spot filming was performed to verify placement of spinal needles at the L4-L5 and L5-S1 level(s), as labeled on the films. Appropriate location(s) of the needle tip(s) was confirmed by injection of iodinated contrast. Dictated by: Raul Thomas M.D. on 01/29/2019 at 9:57 Approved by: Raul Thomas M.D. on 01/29/2019 at 9:58
[2019-01-28] MEDS: MIDAZOLAM 5 MG/5 ML VIAL IV (14:00)
[2019-01-28] MEDS: BUPIVACAINE 0.5% (PF) VIAL 2 ML INJ (14:07)
[2019-01-28] MEDS: IOPAMIDOL 15 ML VIAL 3 ML INJ (14:08)
[2019-01-28] MEDS: BETAMETHASONE 30 MG/5 ML MDV 12 MG INJ (14:08)
--- NOTE | 2019-01-28 14:17 | P.PCN_ITS ---
Procedures Date/Time Date of procedure: 01/28/19 Time of procedure: 14:16 General Procedure description: PREOP DIAGNOSIS 1. FACET ARTHROPATHY, 2. AXIAL LBP, 3. MULTILEVEL DDD, POST OP DIAGNOSIS 1. FACET ARTHROPATHY, 2. AXIAL LBP, 3. MULTILEVEL DDD, PROCEDURES 1. FLUORSCOPICALLY GUIDED CONTRAST CONTROLLED FACET JOINT INJECTIONS RIGHT L4/5, L5/S1 SURGEON: Aleksey Crane, DO INDICATIONS Sudha is referred by Dr. Mendieta for treatment of Axial LBP FINDINGS Multilevel Facet Arthropathy with Clinically significant axial LBP DESCRIPTION OF PROCEDURE Fluoroscopically guided, contrast-controlled right L4/5, L5/S1 facet joint injections. Following denial of allergy and review of potential side effects and complications, including, but not necessarily limited to, infection, allergic reaction, local tissue breakdown, stroke, temporary or permanent nerve injury, paralysis, and possible , the patient indicated that the patient understood and agreed to proceed. An informed consent document was signed by the patient, witnessed by a nurse, and placed in the patient's chart. Additionally, other treatment options including medications, modalities, and physical therapy were reviewed with the patient. After review of previous anaesthesic history and IV conscious sedation the patient was deemed safe to proceed with todays procedure with IV conscious sedation as ASA class II designation. Safety time-out was performed to confirm patient ID, procedure to be performed and site of procedure. IV sedation was accomplished with 3mg of Versed was administered by the RN after DO order, titrated to patient comfort during the course of the procedure while the patient remained responsive to all verbal commands. In the prone position, following sterile prep and drape of the lumbar region, the posterior aspect of the right L4/5, L5/S1 facet joints were identified fluoroscopically. The skin was anesthetized via a 25-gauge 1.5-inch needle with 1% lidocaine solution into the corresponding facet joints. At this point, a 22- gauge 3.5-inch spinal needle was atraumatically introduced and advanced under fluoroscopic guidance into the corresponding facet joints. Following negative aspiration, injections of approximately 0.2-cc of Isovue 200 confirmed interarticular placement without vascular uptake. Radiological data, including multiple fluoroscopic views of the lumbosacral spine, reveal a spinal needle at the right L4/5, L5/S1 facet joints. Subsequent views show flow of contrast material both superiorly and inferiorly within the joint space without vascular or intrathecal uptake. At this point, a total of 0.5 cc including a mixture of 0.25cc Marcaine and 0.25cc betamethasone was injected without complication into each of the corresponding facet joints. The procedure tolerated the procedure well without signs or symptoms of complications prior to transfer to the recovery area continued monitoring without incident. The patient was then transferred to the recovery area where they were observed for an appropriate period of time after the injection. The patient reported a VAS score of 7 prior to the procedure and a post-procedure VAS of 0. Total Fluoroscopy Time: 12.7 seconds Total Conscious Sedation Time: 24min POST OP INSTRUCTIONS The patient was provided a Pain Log to continue to record their response to the target-specific procedure prior to follow-up visit with their referring physician. Additionally, specific post-injection care instructions and a contact number to our office were provided if concerns arise regarding possible complications associated with the procedure are suspected. Aleksey Crane, Complications: none
--- NOTE | 2019-01-28 14:26 | PC.NURSE ---
pt tolerated procedure, able to get off table with standby assist. Pt a little groggy but follows commands and is stable on her feet . Transferred pt to pre procedure room via wheelchair for continued monitoring with Maritza CARLIN.
== END 2019-01-28 14:58 | disposition home or self-care (01) ==
LOC: RAD 12:51
PROVIDERS: PCP Family Medicine; Visit Provider Physical Medicine & Rehabilitation
DX: M47.817 Spondylosis without myelopathy or radiculopathy, lumbosacral region (principal); M47.816 Spondylosis without myelopathy or radiculopathy, lumbar region; M51.36 Other intervertebral disc degeneration, lumbar region; M51.37 Other intervertebral disc degeneration, lumbosacral region; M54.5 Low back pain; M43.17 Spondylolisthesis, lumbosacral region
CPT/HCPCS: 64493; 99152; J0702; J2250; J3010

== ENCOUNTER 2024-04-18 07:37 | Emergency (ER) | payer OTHER, SELFPAY ==
[2024-04-18] VITALS (8 sets, daily range): BP systolic 153–201; BP diastolic 67–82; PULSE 66–81; RESP 16; TEMP 36.8; O2SAT 96–98; BMI 28.9
--- NOTE | 2024-04-18 08:15 | PC.NURSE ---
Base of foot near fourth toe red, swollen and very painful. Warm to the touch.
--- NOTE | 2024-04-18 08:18 | ED_ITS ---
HPI - Extremity Injury (Lower) General Chief Complaint: Extremity Injury, Lower Stated Complaint: something on R foot causing pain/diabetic Time Seen by Provider: 04/18/24 07:42 History of Present Illness HPI Narrative: 73-year-old female with history of diabetes presents by private vehicle from home for right foot pain. Patient states about 3 days ago an area at the bottom of her foot near her 4th toe began hurting and has become progressively more painful. Patient states that she was outside frequently and may have stepped on something, but always where she was socks when she goes outside. She states that she has never seen a fulfillment representative for her feet in the past. Has sensation in the base of her feet. She called her primary care doctor, who referred her to the emergency department for further evaluation. Related Data Home Medications Medication Instructions Recorded Confirmed aspirin 325 mg tablet 325 mg PO DAILY 08/29/18 01/09/19 benzonatate 200 mg capsule 200 mg PO TID PRN 08/29/18 01/09/19 calcium carbonate 500 mg PO Q4-6H PRN 08/29/18 01/09/19 carvedilol 6.25 mg tablet See Rx Instructions PO BID 08/29/18 01/09/19 duloxetine 60 mg capsule,delayed 60 mg PO DAILY 08/29/18 01/09/19 release ferrous fumarate 325 mg (106 mg PO DAILY 08/29/18 01/09/19 iron) tablet glipizide 10 mg tablet 10 mg PO BID 08/29/18 01/09/19 metformin 1,000 mg tablet 1,000 mg PO BID 08/29/18 01/09/19 paroxetine HCl 10 mg tablet 10 mg PO DAILY 08/29/18 01/09/19 ropinirole 3 mg tablet 3 mg PO BEDTIME 08/29/18 01/09/19 gabapentin 300 mg capsule 600 mg PO TID 10/23/18 01/09/19 Previous Rx's Medication Instructions Recorded tramadol 50 mg tablet 50 mg PO TID PRN pain #60 tabs 10/23/18 celecoxib 200 mg capsule (Celebrex) 200 mg PO DAILY #30 caps 06/17/19 cephalexin 500 mg capsule 500 mg PO QID 7 days #28 caps 04/18/24 doxycycline hyclate 100 mg capsule 100 mg PO BID #14 caps 04/18/24 hydrocodone 5 mg-acetaminophen 325 1 tab PO Q8H PRN pain #12 tabs 04/18/24 mg tablet Allergies Allergy/AdvReac Type Severity Reaction Status Date / Time ciprofloxacin Allergy Intermediate hives Verified 01/09/19 11:48 levofloxacin Allergy Intermediate nausea - Verified 01/09/19 11:48 vomitting lisinopril AdvReac Intermediate low BP, Verified 01/09/19 11:48 dizziness ketorolac AdvReac Mild itching Verified 01/09/19 11:48 zolpidem AdvReac Mild sleep Verified 01/09/19 11:48 walking daptomycin AdvReac Unknown unkknown Verified 01/09/19 11:48 Patient History Social History Smoking Status: Never smoker Smoking Status: Never smoker Substance Use Type: does not use Exam Initial Vital Signs Initial Vital Signs: Vital Signs Pulse Rate 81 04/18/24 07:43 Pulse Oximetry 97 04/18/24 07:43 Const: Awake, alert, no acute distress, nontoxic appearing MSK: Atraumatic, full range of motion, pulses equal Skin: 0.5 cm area of tenderness base of right foot under 4th digit. No obvious foreign bodies. Neuro: AO x3, CN II-XII grossly intact, moves all extremities Procedures Abscess I/D I&D #1: Site: foot Side (if applicable): right Local Anesthetic: other anesthetic (lidocaine-prilocaine ointment) Technique: incised with #11 blade Complications: other (none) Course Orders Ordered: ED Orders 04/18/24 08:17 XR foot RT min 3V Stat Discontinued Medications Lidocaine/Prilocaine (Lidocaine/Prilocaine 5 Gm) 5 gm TOP NOW ONE Stop: 04/18/24 08:18 Last Admin: 04/18/24 08:26 Dose: 5 gm Documented By: [facility] Vital Signs Vital signs: Vital Signs - 8 hr 04/18/24 07:43 04/18/24 07:44 04/18/24 07:44 Temperature Pulse Rate 81 81 Respiratory Rate Blood Pressure 201/81 H Pulse Oximetry 97 96 Oxygen Delivery Method 04/18/24 07:50 04/18/24 08:00 04/18/24 08:00 Temperature 98.2 F Pulse Rate 71 66 Respiratory Rate 16 Blood Pressure 201/81 H 186/82 H Pulse Oximetry 96 97 Oxygen Delivery Method Room Air 04/18/24 08:30 04/18/24 08:31 04/18/24 08:31 Temperature Pulse Rate 72 68 Respiratory Rate Blood Pressure 187/72 H Pulse Oximetry 97 96 Oxygen Delivery Method MDM - Extremity Injury (Lower) Lab Data Labs: Point of Care Testing Glucose POC 189 Imaging Data Extremity x-ray #1: Radiologist's Impression: PROCEDURE: XR FOOT RT MIN 3V INDICATIONS: POSS FOREIGN BODY BASE 4TH/5TH TOE TECHNIQUE: 3 views of the foot were acquired. COMPARISON: None. FINDINGS: Bones: No fractures or dislocations. Enthesophyte noted along the inferior calcaneus. No suspicious bony lesions. Soft tissues: No tibiotalar joint effusion. Achilles tendon appears normal. No radiopaque foreign bodies demonstrated. IMPRESSION: No acute bony abnormality. Calcaneal spur. Dictated by: Harlan Lewis M.D. on 04/18/2024 at 8:55 Approved by: Harlan Lewis M.D. on 04/18/2024 at 8:57 [facility] Narrative Medical decision making narrative: Sore of right foot. No obvious foreign body exposure. Wound cleansed with iodine, lidocaine proparacaine ointment applied to foot. X-rays ordered to assess for foreign body. Last tetanus shot less than 5 years ago per patient. No foreign body seen on x-ray. Using an 11 blade scalpel the top of the sore was unroofed and a 3-4 mm platelike foreign body was removed from the base of the foot. A tiny incision was made and a moderate amount of purulent material expressed from the foot wound. Clean dressing applied. Patient counseled on findings and importance of following up with both a diabetic it desktop support specialist and completing antibiotics. Strict ED return precautions discussed at bedside. Discharge Plan Departure Patient Disposition: Home Clinical Impression: Foreign body in foot, Abscess of foot Instructions: DI for Incision and Drainage of a Skin Abscess Activity Restrictions/Additional Instructions: There was a very small plant sticker in your foot. I was able to drain pus from your foot wound. Antibiotics and pain medications have been sent to the [facility] in [place]. It was extremely important that you take all of your antibiotics as prescribed and complete the course even if you feel better. If you do not notice improvement or your wound worsens return to the emergency department for repeat evaluation. I also recommend seeing a fulfillment representative who specializes in diabetic feet. Prescriptions: New cephalexin 500 mg capsule 500 mg PO QID 7 Days Qty: 28 0RF doxycycline hyclate 100 mg capsule 100 mg PO BID Qty: 14 0RF hydrocodone-acetaminophen 5-325 mg tablet 1 tab PO Q8H PRN (Reason: pain) Qty: 12 0RF No Action tramadol 50 mg tablet 50 mg PO TID PRN (Reason: pain) Qty: 60 1RF gabapentin 300 mg capsule 600 mg PO TID celecoxib [Celebrex] 200 mg capsule 200 mg PO DAILY Qty: 30 2RF carvedilol 6.25 mg tablet See Rx Instructions PO BID Patient Comments: 18.5 mg PO BID; Rx Instructions: 18.5 mg PO BID; paroxetine HCl 10 mg tablet 10 mg PO DAILY aspirin 325 mg tablet 325 mg PO DAILY benzonatate 200 mg capsule 200 mg PO TID PRN glipizide 10 mg tablet 10 mg PO BID ropinirole 3 mg tablet 3 mg PO BEDTIME metformin 1,000 mg tablet 1,000 mg PO BID duloxetine 60 mg capsule,delayed release(DR/EC) 60 mg PO DAILY ferrous fumarate 325 mg (106 mg iron) tablet PO DAILY calcium carbonate 500 mg calcium (1,250 mg) capsule 500 mg PO Q4-6H PRN Referrals: Moises Sanderson MD [Primary Care Provider] - Stand Alone Forms: Patient Portal/API
[2024-04-18] MEDS: LIDOCAINE/PRILOCAINE 5 GM TOP (08:26)
--- NOTE | 2024-04-18 09:19 | PC.NURSE ---
Splinter removed. Patient tolerated well.
== END 2024-04-18 09:32 | disposition home or self-care (01) ==
PROVIDERS: Emergency Provider Emergency Medicine; PCP Family Medicine
DX: L02.611 Cutaneous abscess of right foot (principal); S90.851A Superficial foreign body, right foot, initial encounter
CPT/HCPCS: 10060; 73630; 82962; 99283